=== PATIENT | female | born 1970 | race Caucasian/White ===

== ENCOUNTER → 2022-08-17 14:39 | Outpatient (CLI) | payer OTHER, SELFPAY ==
--- NOTE | ~2022-08-17 | US_ITS ---
EXAMINATION: US thyroid DATE: 08/17/2022 15:01 INDICATION: Thyroid nodule. TECHNIQUE: Multiple ultrasound images of the thyroid were obtained. COMPARISON: None. FINDINGS: The right thyroid lobe measures 4.3 x 1.4 x 1.2 cm. The left thyroid lobe measures 3.5 x 0.9 x 1.1 c m. In the right thyroid lobe, there is a 4 mm nodule. IMPRESSION: 1. Small thyroid nodule, likely not clinically significant. No follow-up is needed. Reviewed, dictated and finalized at location A. IMPRESSION: 1. Small thyroid nodule, likely not clinically significant. No follow-up is nee ded.
== END ==
PROVIDERS: PCP Hospitalist
DX: E04.1 Nontoxic single thyroid nodule (principal)
CPT/HCPCS: 76536

== ENCOUNTER 2023-04-21 06:29 | Day surgery (SDC) | payer OTHER, SELFPAY ==
[2023-02-21 14:09] VITALS: BMI 22.5
[2023-04-21 07:35] VITALS: BP 123/79; PULSE 82; RESP 16; TEMP 36.4; O2SAT 100
[2023-04-21 07:50] LABS: Glucose Point of Care 105 mg/dl (65-105)
[2023-04-21] MEDS: LACTATED RINGERS 1,000 ML 150 ML IV CONT (07:50)
--- NOTE | 2023-04-21 08:38 | PM.HPGS ---
History of Present Illness History of Present Illness Consent: Risks, benefits, and alternatives have been discussed and questions answered. Patient agrees to proceed with procedure. Chief complaint: Neoplasia screening Narrative: Sandra Cotton is a 52 year old female Presents for colonoscopy. Patient has no complaints. Her weight appetite and bowel movements are normal. Patient denies abdominal pain. Her colonoscopy in 2017 revealed a benign hyperplastic colon polyp. Review of Systems Review of Systems: review of systems is noncontributory. PMFSH Family History Family History (System 07/13/22 @ 15:21 by Tim Delgadillo) Other Hypertension Social History Social History (System 07/13/22 @ 15:21 by Tim Delgadillo) Smoking status: Never smoker Second hand tobacco smoke exposure: No Alcohol intake: current Drinks per week: 8 Substance use type: does not use Living arrangements: with family Spiritual care concerns: No Meds Home Medications and Allergies Home Medications Medication Instructions Recorded Confirmed Type Vitamin D3 1 tab-cap PO DAILY 04/06/23 04/21/23 History dulaglutide 4.5 mg/0.5 mL See Rx Instructions .Route .COMPLEX 04/06/23 04/21/23 History subcutaneous pen injector (Trulicity) insulin glargine-yfgn 100 unit/mL See Rx Instructions .Route .COMPLEX 04/06/23 04/21/23 History (3 mL) subcutaneous pen (Semglee (insulin glargine-yfgn) Pen) multivitamin 1 tablet PO DAILY 04/06/23 04/21/23 History pitavastatin calcium 4 mg tablet 4 mg PO DAILY 04/06/23 04/21/23 History (Livalo) Allergies Allergy/AdvReac Type Severity Reaction Status Date / Time No Known Allergies Allergy Mild Verified 04/21/23 07:37 Vital Signs Vital Signs - 24 hr 04/21/23 07:35 Temperature 97.5 F L Pulse Rate 82 Respiratory Rate 16 Blood Pressure 123/79 Pulse Oximetry 100 Oxygen Delivery Room Air Exam Narrative: Physical exam reveals patient to be alert. Vital signs stable. HEENT exam is unremarkable. Patient is anicteric. Lungs are clear to auscultation and percussion. Heart is without murmur or extra sounds. Abdomen bowel sounds are present soft nontender with no organomegaly. Digital external rectal exam is normal. Assessment and Plan Assessment and plan (1) Encounter for screening colonoscopy: Code(s): Z12.11 - Encounter for screening for malignant neoplasm of colon Status: Acute Assessment and Plan: patient has a history of hyperplastic polyp in the past. 0 cancer risk associated with this type polyp. Today she presents for neoplasia screening. Further recommendations may be given after the us copy.
--- NOTE | 2023-04-21 09:10 | P.PNAN_ITS ---
Anes - Initial Pre Proc Eval Procedure: Operation Date: 04/21/23 09:00 Proposed Procedures p Diagnostic Colonoscopy - Bismark Jones MD Date/Time: 04/21/23 09:10 Surgeon: Bismark Jones MD Pre Op Diagnosis: Neoplasia screening Patient Data Age: 52 Gender: F Height: 1.65 m Weight: 59.25 kg Last Vital Signs Temp 36.4 C L 04/21/23 07:35 Pulse 82 04/21/23 07:35 Resp 16 04/21/23 07:35 BP 123/79 04/21/23 07:35 Pulse Ox 100 04/21/23 07:35 O2 Del Method Room Air 04/21/23 07:35 Allergies Allergy/AdvReac Type Severity Reaction Status Date / Time No Known Allergies Allergy Mild Verified 04/21/23 07:37 Home Medications Medication Instructions Recorded Confirmed Type Vitamin D3 1 tab-cap PO DAILY 04/06/23 04/21/23 History dulaglutide 4.5 mg/0.5 mL See Rx Instructions .Route .COMPLEX 04/06/23 04/21/23 History subcutaneous pen injector (Trulicity) insulin glargine-yfgn 100 unit/mL See Rx Instructions .Route .COMPLEX 04/06/23 04/21/23 History (3 mL) subcutaneous pen (Semglee (insulin glargine-yfgn) Pen) multivitamin 1 tablet PO DAILY 04/06/23 04/21/23 History pitavastatin calcium 4 mg tablet 4 mg PO DAILY 04/06/23 04/21/23 History (Livalo) Laboratory Tests 04/21/23 07:47 POC Capillary Glucose 105 mg/dl (65-105) Patient hx anesthesia problems: none Family hx anesthesia problems: none Results Review: All pre-operative results and documents have been reviewed as part of the pre- operative evaluation. [facility] Past Medical History Medical History (Updated 04/21/23 @ 09:10 by Justin Reveles MD) Diabetes Family History Family History Other Hypertension Social History Social History Smoking status: Never smoker Second hand tobacco smoke exposure: No Alcohol intake: current Drinks per week: 8 Substance use type: does not use Living arrangements: with family Spiritual care concerns: No Anes - Eval Final PreProcedure Day of Procedure 04/21/23 09:10 Patient weight: normal Heart: regular rate and rhythm Lungs: clear to auscultation Airway: Mallampati scale class II Neurological: alert and oriented Last oral intake: >/= 8 hours ASA classification: III Emergent: no Anesthetic plan: proceed Anesthesia type and monitoring: general GIVS and standard monitoring Results Review: All pre-operative results and documents have been reviewed as part of the pre- operative evaluation. Informed Consent: The patient's anesthetic plan and its attendant risks and benefits were discussed with the patient/family/POA. Questions were solicited and answers provided to the satisfaction of the patient/family/POA.
[2023-04-21 09:31] VITALS: BP 106/69; PULSE 100; RESP 18; O2SAT 100
[2023-04-21 09:41] VITALS: BP 104/76; PULSE 79; RESP 18; O2SAT 100
[2023-04-21 09:51] VITALS: BP 138/86; PULSE 69; RESP 20; O2SAT 100
--- NOTE | 2023-04-21 09:59 | WPDANESPN ---
Anes - Prog Note Post-Op Date/Time: 04/21/23 09:59 Cardiovascular status: normal Respiratory status: normal Airway patency: baseline Mental status: baseline Post-Op hydration status: normal Vital Signs: Last Vital Signs Temp 36.4 C L 04/21/23 07:35 Pulse 100 04/21/23 09:31 Resp 18 04/21/23 09:31 BP 106/69 04/21/23 09:31 Pulse Ox 100 04/21/23 09:31 O2 Del Method Room Air 04/21/23 09:31 Pain Score (VAS): 0/10 I/O: Intake & Output 04/20/23 04/21/23 04/21/23 23:59 07:59 15:59 Intake Total 400 Balance 400 04/21/23 07:47 POC Capillary Glucose 105 Patient Feedback: Patient satisfied with anesthetic care.
== END 2023-04-21 10:07 | disposition home or self-care (01) ==
PROVIDERS: PCP Hospitalist; Visit Provider Internal Medicine Gastroenterology
PROC: 0DJD8ZZ Inspection of Lower Intestinal Tract, Via Natural or Artificial Opening Endoscopic (ICD-10-PCS; CPT 45378; principal; 2023-04-21 09:00)
DX: Z12.11 Encounter for screening for malignant neoplasm of colon (principal); K64.8 Other hemorrhoids
CPT/HCPCS: 45378